=== PATIENT | female | born 1990 | race Two or more races ===

== ENCOUNTER 2023-02-17 14:35 | Outpatient (CLI) | payer OTHER | END 2023-02-17 17:30 | disposition home or self-care (01) | LOC: PRENATAL 14:35 | PROVIDERS: ATTEND Obstetrics & Gynecology Maternal & Fetal Medicine | DX: O35.9XX0 Maternal care for (suspected) fetal abnormality and damage, unspecified, not applicable or unspecified (principal); O35.3XX0 Maternal care for (suspected) damage to fetus from viral disease in mother, not applicable or unspecified; O44.00 Complete placenta previa NOS or without hemorrhage, unspecified trimester; Z3A.19 19 weeks gestation of pregnancy ==

== ENCOUNTER 2023-05-21 14:19 | Outpatient (CLI) | payer OTHER | END 2023-05-21 14:20 | disposition home or self-care (01) | LOC: PRENATAL 14:19 | PROVIDERS: ATTEND Obstetrics & Gynecology Maternal & Fetal Medicine | DX: O26.849 Uterine size-date discrepancy, unspecified trimester (principal); O36.8199 Decreased fetal movements, unspecified trimester, other fetus; O99.280 Endocrine, nutritional and metabolic diseases complicating pregnancy, unspecified trimester; Z3A.32 32 weeks gestation of pregnancy ==

== ENCOUNTER 2023-07-08 16:23 | Inpatient (IN) | payer OTHER ==
[~2023-07-08] VITALS: Ht 162.6 cm; Wt 8.6 kg
[2023-07-08 18:45] LABS: HEMATOCRIT 31.2 % (36.0-45.00); HEMOGLOBIN 10.1 g/dL (12.0-15.00); MEAN CELL VOLUME 72.1 fL (80.00-100.00); MEAN CORPUSCULAR HEMOGLOBIN 23.3 pg (27.00-32.0); MEAN CORPUSCULAR HGB CONC 32.4 g/dl (32.0-36.0); PH,URINE 6.5 (5.0-8.0); PLATELET COUNT 185 K/uL (150-450); RED BLOOD COUNT 4.32 M/uL (4.00-6.00); RED CELL DISTRIBUTION WIDTH 16.3 % (11.5-14.5); URINE APPEARANCE Cloudy; URINE BILIRRUBIN Negative (NEGATIVE); URINE BLOOD Negative; URINE COLOR Yellow; URINE GLUCOSE Negative (NEGATIVE); URINE LEUKOCYTE Trace; URINE NITRATE Negative; URINE PROTEIN Trace (NEGATIVE)
[2023-07-08 18:46] LABS: URINE BACTERIA 7966.4 uL (0.0-1933); URINE RBC 36.3 uL (0.0-20.8); URINE WBC 69.4 uL (0.0-23.2)
[2023-07-08 19:17] LABS: INR < 0.93; PARTIAL THROMBOPLASTIN TIME 23.9 SECONDS (22.0-34.0); PROTHROMBIN TIME 9.6 SECONDS (9.0-11.5); URINE CRYSTALS FEW /HPF; URINE MUCUS MODERATE
[2023-07-08 19:22] LABS: ALBUMIN 2.7 gm/dL (3.4-5.0); BILIRUBIN TOTAL 0.4 mg/dL (0.3-1.2); CALCIUM 9.1 mg/dL (8.5-10.1); CREATININE SERUM 0.6 mg/dL (0.55-1.02); GFR 116.6; GLOBULINA 3.7 G/DL (2.4-3.5); POTASSIUM 4.14 mEq/L (3.5-5.1); TOTAL PROTEIN 6.4 gm/dL (6.4-8.2)
[2023-07-09] MEDS ORDERED: SYNTHROID88 MCG (06:59)
[2023-07-09] MEDS ORDERED: COLACE100 MG PO (07:00)
[2023-07-09] MEDS ORDERED: ALLERGY RELIEF5 M1 PO (07:01)
[2023-07-11] MEDS ORDERED: COLACE100 MG PO (11:01)
== END 2023-07-11 11:46 | disposition home or self-care (01) | DRG 806 ==
LOC: OB/GYN 16:23 → LDR 16:23 → OB/GYN 07-09 13:48
PROVIDERS: ADMIT Obstetrics & Gynecology; ATTEND Obstetrics & Gynecology
PROC: 3E0P7VZ Introduction of Hormone into Female Reproductive, Via Natural or Artificial Opening (ICD-10-PCS; 2023-07-08)
PROC: 4A1HXCZ Monitoring of Products of Conception, Cardiac Rate, External Approach (ICD-10-PCS; 2023-07-08)
PROC: 10E0XZZ Delivery of Products of Conception, External Approach (ICD-10-PCS; principal; 2023-07-09)
PROC: 0KQM0ZZ Repair Perineum Muscle, Open Approach (ICD-10-PCS; 2023-07-09)
PROC: 0UQG7ZZ Repair Vagina, Via Natural or Artificial Opening (ICD-10-PCS; 2023-07-09)
PROC: 3E033VJ Introduction of Other Hormone into Peripheral Vein, Percutaneous Approach (ICD-10-PCS; 2023-07-09)
DX: O70.1 Second degree perineal laceration during delivery (principal); O41.03X0 Oligohydramnios, third trimester, not applicable or unspecified; Z37.0 Single live birth; Z3A.39 39 weeks gestation of pregnancy; Z20.822 Contact with and (suspected) exposure to COVID-19

== ENCOUNTER 2023-08-10 14:11 | Inpatient (IN) | payer OTHER ==
[~2023-08-10] VITALS: Ht 162.6 cm; Wt 77.1 kg
[~2023-08-10 14:11] MED LIST: ALLERGY RELIEF5 M1 PO; COLACE100 MG PO; SYNTHROID88 MCG
[2023-08-10] MEDS ORDERED: ENOXAPARIN SODIUM 80 MG/0.8 ML SYRINGE SUBCUTANEO ONE (17:00)
[2023-08-10] MEDS ORDERED: ACETAMINOPHEN 500 MG GEL..CAP PO ONE (17:15)
[2023-08-10 17:23] LABS: HEMATOCRIT 26.3 % (36.0-45.00); MEAN CORPUSCULAR HGB CONC 31.2 g/dl (32.0-36.0); PLATELET COUNT 392 K/uL (150-450); RED BLOOD COUNT 3.94 M/uL (4.00-6.00); RED CELL DISTRIBUTION WIDTH 17.2 % (11.5-14.5)
[2023-08-10 17:24] LABS: HEMOGLOBIN 8.2 g/dL (12.0-15.00); MEAN CELL VOLUME 66.8 fL (80.00-100.00); MEAN CORPUSCULAR HEMOGLOBIN 20.8 pg (27.00-32.0)
[2023-08-10 17:32] LABS: PARTIAL THROMBOPLASTIN TIME 23.4 SECONDS (22.0-34.0); PROTHROMBIN TIME 10.5 SECONDS (9.0-11.5)
[2023-08-10 17:32] LABS: PH,URINE 5.5 (5.0-8.0); URINE APPEARANCE Cloudy; URINE BILIRRUBIN Negative (NEGATIVE); URINE BLOOD Large; URINE COLOR Dark Yellow; URINE GLUCOSE Negative (NEGATIVE); URINE LEUKOCYTE Small; URINE NITRATE Negative; URINE PROTEIN Trace (NEGATIVE)
[2023-08-10 17:36] LABS: CALCIUM 8.8 mg/dL (8.5-10.1); CREATININE SERUM 0.75 mg/dL (0.55-1.02); GFR 90.13; POTASSIUM 3.37 mEq/L (3.5-5.1)
[2023-08-10 17:37] LABS: URINE BACTERIA 1278.8 uL (0.0-1933); URINE EPITHELIAL CELLS 52.2 uL (0.0-38.8); URINE RBC 734.6 uL (0.0-20.8)
[2023-08-10] MEDS ORDERED: MEDROXYPROGESTERONE ACET 10 MG TABLET PO SCH (19:56)
[2023-08-10] MEDS ORDERED: FAMOTIDINE/PF 20 MG in 0.9 % SODIUM CHLORIDE 8 ML IV PUSH SCH (19:57)
[2023-08-10] MEDS ORDERED: ONDANSETRON HCL 4 MG in 0.9 % SODIUM CHLORIDE 50 ML IV PRN (20:00)
[2023-08-10] MEDS ORDERED: ACETAMINOPHEN 500 MG GEL..CAP PO PRN (20:00)
[2023-08-10] MEDS ORDERED: PROMETHAZINE HCL 25 MG/ML AMPUL IM ONE (20:00)
[2023-08-10] MEDS ORDERED: MEPERIDINE HCL/PF 25 MG/ML VIAL IM ONE (20:00)
[2023-08-10] MEDS ORDERED: 0.9 % SODIUM CHLORIDE 1,000 ML IV SCH (20:00)
[2023-08-10] MEDS ORDERED: ENOXAPARIN SODIUM 80 MG/0.8 ML SYRINGE SUBCUTANEO SCH (21:00)
[2023-08-10 22:25] LABS: ABG PH 7.506 (7.35-7.45); ABG PO2 125.6 mmHg (80-100); ABG pCO2 31.9 mmHg (35-45); BASE EXCESS 2.3 mmol/l; BICARBONATE 24.7 mmol/l (23-25); SaO2 99.2 %; Tco2 25.6 mmol/l; allen test SATISFACTORY; o2 21 %; puncture site RADIAL LEFT
[2023-08-11] MEDS ORDERED: MORPHINE SULFATE 4 MG/ML VIAL IV PRN (09:45)
[2023-08-11] MEDS ORDERED: DEXTROSE 5 % AND 0.9 % NACL 1,000 ML IV SCH (14:30)
[2023-08-12 00:02] LABS: HEMATOCRIT 30.6 % (36.0-45.00); MEAN CELL VOLUME 71.2 fL (80.00-100.00); MEAN CORPUSCULAR HGB CONC 32.2 g/dl (32.0-36.0); PLATELET COUNT 300 K/uL (150-450); RED CELL DISTRIBUTION WIDTH 18.5 % (11.5-14.5)
[2023-08-12 00:03] LABS: HEMOGLOBIN 9.9 g/dL (12.0-15.00)
[2023-08-12 07:07] LABS: T4 FREE 1.18 NG/ML (0.76-1.46); TSH 2.33 uIU/mL (0.358-3.74)
[2023-08-12 07:09] LABS: FERRITIN 79.3 NG/ML (8-252)
[2023-08-12] MEDS ORDERED: SOD FERRIC GLUC COMPLX/SUCROSE 62.5 MG/5 ML AMPUL IV SCH (09:00)
[2023-08-12] MEDS ORDERED: VITAMIN B COMPLEX 1 EACH PO SCH (09:00)
[2023-08-12] MEDS ORDERED: DOCUSATE SODIUM 100MG CAP PO SCH (09:00)
[2023-08-12] MEDS ORDERED: Cyanocobalamin/Mecobalamin 1 TAB.SL SL SCH (09:00)
[2023-08-12] MEDS ORDERED: CYANOCOBALAMIN (VITAMIN B-12) 1,000 MCG/ML VIAL IM SCH (13:00)
[2023-08-12 15:17] LABS: HEMATOCRIT 32.1 % (36.0-45.00); HEMOGLOBIN 10.4 g/dL (12.0-15.00); MEAN CELL VOLUME 70.7 fL (80.00-100.00); MEAN CORPUSCULAR HEMOGLOBIN 22.9 pg (27.00-32.0); MEAN CORPUSCULAR HGB CONC 32.3 g/dl (32.0-36.0); PLATELET COUNT 308 K/uL (150-450); RED BLOOD COUNT 4.54 M/uL (4.00-6.00); RED CELL DISTRIBUTION WIDTH 18.7 % (11.5-14.5)
[2023-08-12] MEDS ORDERED: MORPHINE SULFATE 2 MG/ML CARTRIDGE IV STA (15:35)
[2023-08-12] MEDS ORDERED: LIDOCAINE HCL/EPINEPHRINE 20 ML VIAL IJ ONE (19:30)
[2023-08-12] MEDS ORDERED: BUPIVACAINE HCL/PF 0.5% 5MG/ML VIAL IJ ONE (19:30)
[2023-08-12] MEDS ORDERED: IOVERSOL 320 MG/ML - 100 ML VIAL IV ONE (19:30)
[2023-08-13] MEDS ORDERED: ENOXAPARIN SODIUM 80 MG/0.8 ML SYRINGE SUBCUTANEO SCH (09:00)
[2023-08-13] MEDS ORDERED: APIXABAN 5 MG TABLET PO SCH (09:00)
[2023-08-13] MEDS ORDERED: MORPHINE SULFATE 4 MG/ML CARTRIDGE IV PRN (13:15)
[2023-08-13] MEDS ORDERED: BUPROPION HCL 150 MG TABLET.SA PO SCH (14:01)
[2023-08-13] MEDS ORDERED: CLONAZEPAM 0.5 MG TABLET PO PRN (14:15)
[2023-08-13 18:12] LABS: ANTI-THROMBIN III 129 % (75-135); PROTEIN C ACTIVITY 101 % (73-180)
[2023-08-13] MEDS ORDERED: ZOLPIDEM TARTRATE 10 MG TABLET PO SCH (21:00)
[2023-08-14] MEDS ORDERED: PENTOXIFYLLINE 400 MG TABLET.SA PO SCH (18:50)
[2023-08-14] MEDS ORDERED: PANTOPRAZOLE SODIUM 40 MG TABLET.DR PO SCH (18:52)
[2023-08-15 12:12] LABS: dRVVT 39.8 sec (0.0-47.0); interp Comment: (.); ptt-la 33.3 sec (0.0-43.5)
[2023-08-15 12:30] LABS: HEMATOCRIT 26.5 % (36.0-45.00); MEAN CELL VOLUME 71.5 fL (80.00-100.00); MEAN CORPUSCULAR HGB CONC 31.9 g/dl (32.0-36.0); PLATELET COUNT 322 K/uL (150-450); RED BLOOD COUNT 3.71 M/uL (4.00-6.00); RED CELL DISTRIBUTION WIDTH 21.4 % (11.5-14.5)
[2023-08-15 12:31] LABS: HEMOGLOBIN 8.5 g/dL (12.0-15.00); MEAN CORPUSCULAR HEMOGLOBIN 22.9 pg (27.00-32.0)
[2023-08-15] MEDS ORDERED: MORPHINE SULFATE 4 MG/ML CARTRIDGE IV PRN (13:30)
[2023-08-17] MEDS ORDERED: METHYLPREDNISOLONE SOD SUCC 40 MG VIAL IV ONE ×2 (13:00→15:00)
[2023-08-17] MEDS ORDERED: DIPHENHYDRAMINE HCL 50 MG/ML VIAL 1ML IV ONE ×2 (13:00→15:00)
[2023-08-17] MEDS ORDERED: IOHEXOL 350 mgI/ML 50ML BOTT PO ONE (15:00)
[2023-08-18 09:32] LABS: HEMATOCRIT 31.8 % (36.0-45.00); HEMOGLOBIN 10.2 g/dL (12.0-15.00); MEAN CORPUSCULAR HEMOGLOBIN 23.8 pg (27.00-32.0); MEAN CORPUSCULAR HGB CONC 32.2 g/dl (32.0-36.0); PLATELET COUNT 340 K/uL (150-450); RED BLOOD COUNT 4.29 M/uL (4.00-6.00); RED CELL DISTRIBUTION WIDTH 21.9 % (11.5-14.5)
[2023-08-18] MEDS ORDERED: FAMOtidine 20 MG TABLET PO SCH (21:00)
[2023-08-19] MEDS ORDERED: ONDANSETRON HCL 4 MG in 0.9 % SODIUM CHLORIDE 50 ML IV PRN (02:30)
[2023-08-19] MEDS ORDERED: ACETAMINOPHEN 500 MG GEL..CAP PO PRN (02:30)
[2023-08-19] MEDS ORDERED: APIXABAN 5 MG TABLET PO SCH (21:00)
[2023-08-21] MEDS ORDERED: CYANOCOBALAMIN (VITAMIN B-12) 1,000 MCG/ML VIAL IM SCH (09:00)
== END 2023-08-20 12:15 | disposition home or self-care (01) | DRG 301 ==
LOC: ER 14:11 → MEDI 20:16
PROVIDERS: General Practice; Internal Medicine; Internal Medicine Hematology & Oncology; Nurse Practitioner Family; ADMIT Student in an Organized Health Care Education/Training Program; ATTEND Student in an Organized Health Care Education/Training Program
PROC: B54BZZZ Ultrasonography of Right Lower Extremity Veins (ICD-10-PCS; principal; 2023-08-10)
PROC: 30233N1 Transfusion of Nonautologous Red Blood Cells into Peripheral Vein, Percutaneous Approach (ICD-10-PCS; 2023-08-11)
PROC: 4A12X4Z Monitoring of Cardiac Electrical Activity, External Approach (ICD-10-PCS; 2023-08-11)
PROC: 06H03DZ Insertion of Intraluminal Device into Inferior Vena Cava, Percutaneous Approach (ICD-10-PCS; 2023-08-12)
PROC: BW21Y0Z Computerized Tomography (CT Scan) of Abdomen and Pelvis using Other Contrast, Unenhanced and Enhanced (ICD-10-PCS; 2023-08-17)
DX: I82.421 Acute embolism and thrombosis of right iliac vein (principal); I82.411 Acute embolism and thrombosis of right femoral vein; E06.3 Autoimmune thyroiditis; R22.41 Localized swelling, mass and lump, right lower limb; Z20.822 Contact with and (suspected) exposure to COVID-19; D51.8 Other vitamin B12 deficiency anemias; E03.9 Hypothyroidism, unspecified; D51.9 Vitamin B12 deficiency anemia, unspecified; D50.0 Iron deficiency anemia secondary to blood loss (chronic); F43.23 Adjustment disorder with mixed anxiety and depressed mood; F32.9 Major depressive disorder, single episode, unspecified; O99.345 Other mental disorders complicating the puerperium; F41.9 Anxiety disorder, unspecified